=== PATIENT | male | born 1995 | race Caucasian/White ===

== ENCOUNTER 2022-03-14 12:00 | Emergency (ER) | payer SELFPAY ==
[2022-03-14] MEDS ORDERED: Iopamidol 370 76% 100 ML VIAL FS ONE (12:01)
== END 2022-03-14 13:23 | disposition home or self-care (01) ==
LOC: BURERS 12:00
DX: S20.211A Contusion of right front wall of thorax, initial encounter (principal); F17.220 Nicotine dependence, chewing tobacco, uncomplicated; W19.XXXA Unspecified fall, initial encounter
CPT/HCPCS: 71260; 74177; Q9967